=== PATIENT | male | born 1945 | race Caucasian/White ===

== ENCOUNTER → 2016-07-10 | Outpatient (CLI) | payer MEDICARE, OTHER | END | disposition home or self-care (01) | LOC: GMAJ 08:30 | PROVIDERS: ATTEND Family Medicine | DX: N18.3 Chronic kidney disease, stage 3 (moderate) (principal) ==

== ENCOUNTER → 2016-07-17 | Outpatient (CLI) | payer MEDICARE, OTHER ==
--- NOTE | 2016-07-17 11:49 | MRI ---
EXAM DESCRIPTION: Lumbar Spine w/o Contrast CLINICAL HISTORY: OTHER SPONDYLOSIS WITH MYELOPATHY COMPARISON: X-ray July 12, 2016 TECHNIQUE: Multiplanar, multisequence MRI of the lumbar spine was performed without contrast. FINDINGS: GENERAL Lumbar vertebral bodies show normal height without compression deformity. There is trace anterolisthesis of L4 on L5. No marrow replacing process is seen. Conus medullaris terminates at T12-L1 and is unremarkable. The visualized intra-abdominal and retroperitoneal structures are unremarkable. Several fluid signal less than 10 mm cortical cysts are seen on the upper pole right and lower pole left kidneys. L1-2 Disc desiccation and mild loss of disc space height is seen. No significant spinal canal stenosis or foraminal encroachment is seen. Heterogeneous signal is seen in the bone marrow around the anterior endplates of the disc space. Anterior disc bulging and marginal endplate osteophytes are seen. L2-3 No significant findings. L3-4 No significant findings. L4-5 Disc desiccation and mild loss of disc space height is seen. Moderate bilateral facet hypertrophic and degenerative changes with moderate ligamentum flavum thickening is seen. There is multifactorial moderate spinal canal stenosis. The thecal sac measures 8 mm AP by 12 mm transverse. There is at least mild right greater than left foraminal encroachment. Mild bilateral lateral recess encroachment is seen. There is a 6 mm posterior inferior left and 7 mm right facet joint cyst. L5-S1 Mild disc desiccation without loss of disc space height. Mild facet hypertrophy is seen. No significant spinal canal stenosis or foraminal encroachment. IMPRESSION: Mild disc disease and moderate facet arthropathy contributes to at least mild spinal canal stenosis with lateral recess and bilateral foraminal encroachment at L4-5. Mild to moderate disc disease at L1-2 is seen with Modic type I and II degenerative endplate signal changes anteriorly. Electronically signed by: Michael Mijares MD 07/17/2016 11:48 AM CDT
== END ==
LOC: MRI 08:56
PROVIDERS: ATTEND Family Medicine
DX: M47.16 Other spondylosis with myelopathy, lumbar region (principal)

== ENCOUNTER → 2016-10-31 | Outpatient (CLI) | payer MEDICARE, OTHER | END | disposition home or self-care (01) | LOC: GMAJ 11:00 | PROVIDERS: ATTEND Family Medicine | DX: I50.22 Chronic systolic (congestive) heart failure (principal) ==

== ENCOUNTER → 2017-02-26 | Outpatient (CLI) | payer MEDICARE, OTHER | END | disposition home or self-care (01) | LOC: GMAJ 10:48 | PROVIDERS: ATTEND Family Medicine | DX: Z12.5 Encounter for screening for malignant neoplasm of prostate (principal); I50.22 Chronic systolic (congestive) heart failure | CPT/HCPCS: 83880; G0103 ==

== ENCOUNTER → 2017-03-19 | Outpatient (CLI) | payer MEDICARE, OTHER | END | disposition home or self-care (01) | LOC: GMAJ 13:55 | PROVIDERS: ATTEND Family Medicine | DX: R06.02 Shortness of breath (principal) ==

== ENCOUNTER → 2017-07-16 | Outpatient (CLI) | payer MEDICARE, OTHER | LOC: GMAJ 11:26 | PROVIDERS: ATTEND Family Medicine | DX: I50.22 Chronic systolic (congestive) heart failure (principal) ==

== ENCOUNTER → 2017-11-12 | Outpatient (CLI) | payer MEDICARE, OTHER | LOC: GMAJ 11:13 | PROVIDERS: ATTEND Family Medicine | DX: I50.22 Chronic systolic (congestive) heart failure (principal) ==

== ENCOUNTER → 2018-02-11 | Outpatient (CLI) | payer MEDICARE, OTHER | LOC: GMAJ 10:49 | PROVIDERS: ATTEND Family Medicine | DX: R06.02 Shortness of breath (principal) ==

== ENCOUNTER → 2018-03-07 | Outpatient (CLI) | payer MEDICARE, OTHER | LOC: GMAJ 10:36 | PROVIDERS: ATTEND Family Medicine | DX: I50.22 Chronic systolic (congestive) heart failure (principal) ==

== ENCOUNTER → 2018-05-13 | Outpatient (CLI) | payer MEDICARE, OTHER | LOC: GMAJ 10:22 | PROVIDERS: ATTEND Family Medicine | DX: R06.02 Shortness of breath (principal); Z12.5 Encounter for screening for malignant neoplasm of prostate | CPT/HCPCS: 83880; G0103 ==

== ENCOUNTER 2018-07-12 11:17 | Inpatient (IN) | payer MEDICARE, OTHER ==
--- NOTE | 2018-07-12 11:22 | HP ---
SUPERVISING PHYSICIAN: Rogerio Hamilton M.D. CHIEF COMPLAINT: Increasing exertional dyspnea. HISTORY OF PRESENT ILLNESS: Mr. Sainz is a 72 year-old male patient with a history of congestive heart failure first diagnosed in 2013 secondary to nonischemic cardiomyopathy with ejection fraction noted to be 45% in 2018. He also has a significant history of peripheral vascular disease and chronic renal failure with his creatinine level normally running around 2.5. He presented to Dr. Hamilton' office complaining of shortness of breath that had been worsening over the last 3 weeks. He noted that he was feeling dizzy, light-headed and significantly fatigued. Lab work in the clinic showed that he was significantly anemic with an initial hemoglobin of 7.1, hematocrit 22.3, white count was normal. Differential was normal. RBC indices were showing to be all within normal limits. He denied any obvious episodes of bleeding, nausea, vomiting or abdominal pains or any bright red blood per rectum. BNP showed to be at the patient's normal baseline levels. The patient's baseline level of BNP is normally around 300 to 400. BNP today was slightly elevated above that at 675. Chemistry showed that his creatinine was slightly bumped to 2.6 with BUN of 48, otherwise all other chemistries were within normal limits. Given the patient's history of congestive heart failure with a systolic etiology and anemia resulting in severe symptoms of fatigue, dizziness and light-headedness and shortness of breath, he is having obviously some exacerbation from low output of his CHF. Dr. Hamilton requested the patient be directly admitted for exacerbation of CHF secondary to anemia for further workup and transfusion of blood, and close monitoring. The patient was admitted in stable condition. PAST MEDICAL HISTORY: 1. Systolic congestive heart failure with last echocardiogram in 2018 showing to be with an ejection fraction of 45% and etiology is nonischemic cardiomyopathy. 2. Hypertension. 3. Hyperlipidemia. 4. Peripheral vascular disease with claudication. 5. Chronic renal failure with creatinine level normally around 2.5. 6. History of upper GI bleed secondary to alcoholic gastritis. PAST SURGICAL HISTORY: 1. Tonsillectomy in 1952. 2. Last colonoscopy was in 2011. 3. Right LE stent placement. 4. Cardiac catheterization in 2013 indicating nonischemic cardiomyopathy. HOME MEDICATIONS: 1. Entresto 97-103 mg 1 tablet b.i.d. 2. Ranexa 500 mg b.i.d. 3. Potassium chloride 20 mEq daily. 4. Lasix 40 mg daily. 5. Calcitrol 0.25 mg daily. 6. Lipitor 40 mg daily. 7. Aspirin 81 mg daily. ALLERGIES: PENICILLINS. FAMILY HISTORY: Father at age 54 secondary to myocardial infarction. Mother at age 74 with hepatitis C. SOCIAL HISTORY: The patient is retired from the [employer]. He is a previous heavy drinker but quit multiple years previously. He was also a heavy smoker for well over 30 years smoking 1 pack per day, but quit in 2012. He lives in [place], [place] and is single. Denies any illicit drug use. REVIEW OF SYSTEMS: CONSTITUTIONAL: Positive for fatigue. Negative for chills, fevers, weight loss. HEENT: Negative for any ear aches, sore throat, nasal congestion, vision changes. RESPIRATORY: Negative for any cough, wheezing. Positive for increasing dyspnea with exertion. CARDIOVASCULAR: Negative for any chest pains, orthopnea, palpitations or peripheral edema. Positive for exertional dyspnea. GASTROINTESTINAL: Negative for any nausea, vomiting, diarrhea, constipation or abdominal pains. GENITOURINARY: Denies any dysuria, hematuria or polyuria. EXTREMITIES: Negative for any edema. NEUROLOGIC: Negative for ataxia, seizures, syncopal episodes, headaches or other neurological deficits. PHYSICAL EXAMINATION: VITAL SIGNS: Temperature 97.4, pulse 73, blood pressure 154/73, respirations 18, satting 100% on room air at rest. Admission weight 70.4 kg. GENERAL: The patient is pale but appears to be well hydrated and well nourished. He appears to be in no acute distress. He is very pleasant and alert. HEENT: Tympanic membranes are clear bilaterally. Oropharynx was pink and moist without any lesions. NECK: Supple, non-tender with full range of motion. CHEST: Lungs were clear to auscultation bilaterally without any rhonchi, wheezing or rales. CARDIOVASCULAR: Regular rate and rhythm without appreciable murmurs, gallops, or rubs. ABDOMEN: Soft, non-tender. Positive bowel sounds. EXTREMITIES: Without any clubbing, cyanosis or edema. NEUROLOGIC: He is alert and oriented times three. LABORATORY STUDIES: CBC showed white count 10,000, hemoglobin 7.1, hematocrit 22.3 with RBCs low at 2.52. Platelets normal at 408,000. RBC indices were showing to be within normal limits. Differential was without a left shift. Chemistries showed glucose 164, BUN 48, creatinine 2.6. Sodium 142, potassium 4.8, chloride 109, CO2 of 22, calcium 9.5. Liver functions were all within normal limits. Bilirubin normal. BNP 675. Coagulation studies showed normal PT and PTT. Magnesium 2.2. Urinalysis just showed trace of lysed blood. RADIOLOGY: Chest x-ray on admission showed no acute cardiopulmonary process. EKG 12-lead was pending. ASSESSMENT: 1. Symptomatic anemia probably due to chronic renal failure with no obvious source of acute loss. 2. Systolic heart failure chronic on acute with exacerbation due to low output from #1 with etiology being ischemic cardiomyopathy with last echocardiogram in 2018 showing an ejection fraction of 45% and an elevated BNP on admission. 3. Hypertension with a systolic heart failure with an ejection fraction of 45%. 4. Severe peripheral vascular disease with claudication. 5. Acute on chronic renal failure with prerenal azotemia secondary to severe anemia. PLAN: The patient is a direct admission for symptomatic anemia and exacerbation of congestive heart failure. The patient will be cross matched and typed and screened for transfusion of 2 units of packed red blood cells. Will give 40 of Lasix after the second unit. He will be on DVT prophylaxis as per protocol. Will have him on Protonix for GI prophylaxis. Will review his medications and resume those as appropriate. Will anticipate his length of stay to be at least 2 to 3 days. Until he can transition to outpatient management will continue to monitor and treat as needed. #[id number] MTDD
[2018-07-12] MEDS ORDERED: ACETAMINOPHEN 325 MG TAB PO PRN (12:06)
[2018-07-12] MEDS ORDERED: SODIUM CHLORIDE 0.9% (FLUSH) 10 ML SYG IV PRN ×2 (12:06→14:22)
[2018-07-12] MEDS ORDERED: NITROGLYCERIN 0.4 MG 25 EA TAB SL PRN (12:06)
[2018-07-12] MEDS ORDERED: IV SET AND CAP CHANGE INJ INJ SCH ×2 (12:30→14:30)
--- NOTE | 2018-07-12 13:47 | RAD ---
EXAM DESCRIPTION: Chest,2 Views CLINICAL HISTORY: 72 years Male, CHF COMPARISON: None available. TECHNIQUE: PA and lateral radiographs of the chest were obtained. FINDINGS: Trachea is midline.The cardiomediastinal silhouette is normal in size. The pulmonary vasculature is within normal limits.The lungs are clear with no acute consolidation.No evidence of pleural effusions.No evidence of pneumothorax. IMPRESSION: No acute cardiopulmonary process. Electronically signed by: Courtney Moran MD 07/12/2018 1:44 PM CDT
[2018-07-12] MEDS ORDERED: ACETAMINOPHEN 500 MG TAB PO PRN (14:22)
[2018-07-12] MEDS ORDERED: MORPHINE SULFATE INJ 10 MG/ML VIAL IM PRN (14:22)
[2018-07-12] MEDS ORDERED: ONDANSETRON INJ 4 MG/2 ML VIAL IV PRN (14:22)
[2018-07-12] MEDS ORDERED: PROMETHAZINE HCL INJ 12.5 MG in SODIUM CHLORIDE 0.9% 50ML 50 ML IVPB PRN (14:22)
[2018-07-12] MEDS ORDERED: MORPHINE SULFATE INJ 10 MG/ML VIAL IV PRN (14:22)
[2018-07-12] MEDS ORDERED: DEX 5% W/NACL 0.45% 1000ML 1,000 ML IVS PRN (14:22)
[2018-07-12] MEDS ORDERED: NALOXONE HCL INJ 0.4 MG/ML VIAL IV PRN (14:22)
[2018-07-12] MEDS ORDERED: PROMETHAZINE HCL INJ 25 MG in SODIUM CHLORIDE 0.9% 50ML 50 ML IVPB PRN (14:22)
[2018-07-12] MEDS ORDERED: MORPHINE PCA 1 MG/ML 100 ML BAG IVPB SCH (14:30)
[2018-07-12] MEDS ORDERED: diphenhydrAMINE HCL 50 MG/ML VIAL IV ONE (15:30)
[2018-07-12] MEDS ORDERED: FUROSEMIDE INJ 40 MG/4 ML VIAL IV ONE (15:30)
[2018-07-12] MEDS ORDERED: ACETAMINOPHEN 325 MG TAB PO ONE (15:30)
[2018-07-12] MEDS ORDERED: SODIUM CHLORIDE 0.9% 500ML 500 ML IVS SCH (15:30)
[2018-07-12] MEDS ORDERED: ceFAZolin SODIUM 2 GM in SODIUM CHL 0.9% 50ML MIN-BAG+ 50 ML IVPB SCH (16:00)
[2018-07-12] MEDS ORDERED: VANCOMYCIN HCL INJ 1,000 MG in SODIUM CHLORIDE 0.9% 250ML 250 ML IVPB SCH (18:00)
[2018-07-12] MEDS: ENOXAPARIN SODIUM 30 MG/0.3 ML SYG SUBCU SCH (20:29)
[2018-07-12] MEDS ORDERED: DOCUSATE CALCIUM 240 MG CAP PO SCH (21:00)
[2018-07-12] MEDS ORDERED: ENOXAPARIN SODIUM 30 MG/0.3 ML SYG SUBCU SCH (23:00)
[2018-07-13] MEDS ORDERED: MAGNESIUM OXIDE 400 MG TAB PO SCH (09:00)
[2018-07-13] MEDS: RANOLAZINE 500 MG TAB PO SCH ×2 (11:42→20:53)
[2018-07-13] MEDS: CALCITRIOL 0.25 MCG CAP PO SCH (11:42)
[2018-07-13] MEDS: ASPIRIN (ENTERIC COATED) 81 MG TAB PO SCH (11:42)
[2018-07-13] MEDS: ENTRESTO PO SCH ×2 (12:19→20:55)
--- NOTE | 2018-07-13 16:48 | PN ---
DATE: 07/13/18 SUPERVISING PHYSICIAN: Rogerio Hamilton M.D. SUBJECTIVE: The patient notes that he is feeling much better this morning. He is not as short of breath and not dizzy when he walks from the bathroom to the bed. He has no other complaints. OBJECTIVE: VITAL SIGNS: Temperature 98.2, pulse 77, blood pressure 124/62, respirations 16, satting 98% on room air. GENERAL: The patient is resting comfortably without any signs of distress. He is alert. CHEST: Clear to auscultation. HEART: Regular rate and rhythm. ABDOMEN: Soft, non-tender. Positive bowel sounds. EXTREMITIES: Without any clubbing, cyanosis or edema. NEUROLOGIC: He is alert and oriented times three. LABORATORY: H&H post transfusion of 2 units of packed red blood cells show hemoglobin 9.6, hematocrit 29.5. Chemistries show normal electrolytes, BUN 49, creatinine 2.33. ASSESSMENT: 1. Symptomatic anemia probably due to chronic renal insufficiency showing good response with transfusion of 2 units of packed red blood cells. 2. Systolic heart failure, chronic on acute with exacerbation due to low output from #1, etiology being ischemic cardiomyopathy with last echocardiogram showing an ejection fraction of 45% in 2018 showing improvement with transfusion. 3. Hypertension with a systolic heart failure with an ejection fraction of 45% as noted in #2. 4. Severe peripheral vascular disease with claudication. 5. Acute on chronic renal failure with prerenal azotemia secondary to severe anemia showing some slight improvement with infusion of blood. PLAN: Will start him back on his Entresto today but half the dose and encourage him to ambulate to check his oxygenation level throughout the day. If he has any stools will do occult bloods. At this point there are no signs of acute bleed. Will monitor him clinically every night. 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 Should he show good response to the Entresto dosing and stable H&H in the morning, will discharge home. Until he can transition to outpatient management will continue to monitor and treat as needed. #[id number] MTDD
[2018-07-13] MEDS: ENOXAPARIN SODIUM 30 MG/0.3 ML SYG SUBCU SCH (20:55)
[2018-07-13] MEDS ORDERED: ATORVASTATIN 20 MG TAB PO SCH (21:00)
[2018-07-14 03:09] VITALS: O2SAT 98
[2018-07-14 06:32] VITALS: BP 116/71; TEMP 97.8
[2018-07-14] MEDS: RANOLAZINE 500 MG TAB PO SCH (08:23)
[2018-07-14] MEDS: CALCITRIOL 0.25 MCG CAP PO SCH (08:23)
[2018-07-14] MEDS: ASPIRIN (ENTERIC COATED) 81 MG TAB PO SCH (08:23)
[2018-07-14] MEDS: ENTRESTO PO SCH (08:24)
[2018-07-14] MEDS ORDERED: SODIUM CHLORIDE 0.9% (FLUSH) 10 ML SYG IV SCH (09:00)
[2018-07-15] MEDS ORDERED: BISACODYL SUPPOSITORY 10 MG PR ONE (21:00)
[2018-07-15] MEDS ORDERED: MAGNESIUM HYDROXIDE 30 ML UD PO ONE (21:00)
--- NOTE | 2018-07-22 11:20 | DS ---
SUPERVISING PHYSICIAN: Rogerio Hamilton MD ADMISSION DIAGNOSIS: 1. Symptomatic anemia probably due to chronic renal failure with no obvious source of acute loss. 2. Systolic heart failure chronic on acute with exacerbation due to low output from #1 with etiology being ischemic cardiomyopathy with last echocardiogram in 2018 showing an ejection fraction of 45% and an elevated BNP on admission. 3. Hypertension with a systolic heart failure with an ejection fraction of 45%. 4. Severe peripheral vascular disease with claudication. 5. Acute on chronic renal failure with prerenal azotemia secondary to severe anemia. DISCHARGE DIAGNOSIS: 1. Symptomatic anemia probably due to chronic renal insufficiency showing good response with transfusion of 2 units of packed red blood cells. 2. Systolic heart failure, chronic on acute with exacerbation due to low output from #1, etiology being ischemic cardiomyopathy with last echocardiogram showing an ejection fraction of 45% in 2018 showing improvement with transfusion. 3. Hypertension with a systolic heart failure with an ejection fraction of 45% as noted in #2. 4. Severe peripheral vascular disease with claudication. 5. Acute on chronic renal failure with prerenal azotemia secondary to severe anemia showing some slight improvement with infusion of blood. REASON FOR HOSPITALIZATION: Mr. Sainz is a 72 year-old male patient with a history of congestive heart failure first diagnosed in 2014 secondary to nonischemic cardiomyopathy with ejection fraction noted to be 45% in 2018. He also has a significant history of peripheral vascular disease and chronic renal failure with his creatinine level normally running around 2.5. He presented to Dr. Hamilton' office complaining of shortness of breath that had been worsening over the last 3 weeks. He noted that he was feeling dizzy, light-headed and significantly fatigued. Lab work in the clinic showed that he was significantly anemic with an initial hemoglobin of 7.1, hematocrit 22.3, white count was normal. Differential was normal. RBC indices were showing to be all within normal limits. He denied any obvious episodes of bleeding, nausea, vomiting or abdominal pains or any bright red blood per rectum. BNP showed to be at the patient's normal baseline levels. The patient's baseline level of BNP is normally around 300 to 400. BNP today was slightly elevated above that at 675. Chemistry showed that his creatinine was slightly bumped to 2.6 with BUN of 48, otherwise all other chemistries were within normal limits. Given the patient's history of congestive heart failure with a systolic etiology and anemia resulting in severe symptoms of fatigue, dizziness and light-headedness and shortness of breath, he is having obviously some exacerbation from low output of his CHF. Dr. Hamilton requested the patient be directly admitted for exacerbation of CHF secondary to anemia for further workup and transfusion of blood, and close monitoring. The patient was admitted in stable condition. LABORATORY: Post transfusion hemoglobin and hematocrit were 9.6 and 29.5. Prior to discharge, hemoglobin was 9.8 and hematocrit 30.1. Coagulation studies showed normal PT, PTT. Chemistries showed normal electrolytes both on admission and at discharge. Creatinine was 2.33 on admission and at discharge was 1.92. Magnesium 2.2. He had one stool occult blood was that was negative. RADIOLOGY: Chest x-ray on admission per radiologic interpretation of two-view chest showed no acute cardiopulmonary process. He also had an EKG that showed sinus rhythm with some PACs. No acute changes compared to previous on 11/28/13. HOSPITAL COURSE: Mr. Sainz was admitted and transfused 2 units of packed red blood cells. He had no complications post transfusion. He was given Lasix after transfusion. The patient's Lasix was held as well as we halved his dose of his Entresto and he showed good clinical response with vital signs being stable. He was found to be stable and improving clinically and felt well enough to continue with outpatient management the day after transfusion and prior to discharge. Discharge vital signs showed temperature 97.8, pulse 68, blood pressure 116/71, saturation 98% on room air. PLAN: Mr. Sainz was discharged on 07/14/18 with instructions to followup with Dr. Hamilton in the clinic the following week. He was to take medications as instructed and to told to return to the hospital or call Dr. Hamilton if he had any worsening symptoms or other concerning symptoms. Diet at discharge was regular diet as tolerated. Activity to increase as tolerated. MEDICATIONS AT DISCHARGE: 1. Entresto 49-51 mg 1 tablet twice daily, #60. All other medications prior to hospitalization were continued except for the dosage change on Entresto. DISPOSITION: The patient was discharged to care of family. CONDITION AT DISCHARGE: Stable and improving. #[id number] [facility]
== END 2018-07-14 10:10 | disposition home or self-care (01) | DRG 291 ==
LOC: MS 11:17
PROVIDERS: ADMIT Nurse Practitioner Family; ATTEND Nurse Practitioner Family
PROC: 30233N1 Transfusion of Nonautologous Red Blood Cells into Peripheral Vein, Percutaneous Approach (ICD-10-PCS; principal; 2018-07-12)
DX: I13.0 Hypertensive heart and chronic kidney disease with heart failure and stage 1 through stage 4 chronic kidney disease, or unspecified chronic kidney disease (principal); I50.23 Acute on chronic systolic (congestive) heart failure; N17.9 Acute kidney failure, unspecified; D63.1 Anemia in chronic kidney disease; N18.9 Chronic kidney disease, unspecified; I73.9 Peripheral vascular disease, unspecified; I42.9 Cardiomyopathy, unspecified; E78.5 Hyperlipidemia, unspecified; Z95.820 Peripheral vascular angioplasty status with implants and grafts; Z79.82 Long term (current) use of aspirin; Z88.0 Allergy status to penicillin; Z79.899 Other long term (current) drug therapy; Z87.891 Personal history of nicotine dependence

== ENCOUNTER → 2018-07-15 | Outpatient (CLI) | payer MEDICARE, OTHER | LOC: GMAJ 11:19 | PROVIDERS: ATTEND Family Medicine | DX: D64.9 Anemia, unspecified (principal) ==

== ENCOUNTER 2018-10-09 05:20 | Day surgery (SDC) | payer MEDICARE, OTHER ==
[2018-10-09 15:52] VITALS: O2SAT 96
[2018-10-09 15:53] VITALS: BP 123/76; TEMP 98.1
== END 2018-10-09 14:35 | disposition home or self-care (01) ==
LOC: AMB 05:20
PROVIDERS: ATTEND Internal Medicine Gastroenterology
DX: D50.9 Iron deficiency anemia, unspecified (principal); K21.0 Gastro-esophageal reflux disease with esophagitis; K44.9 Diaphragmatic hernia without obstruction or gangrene; K31.89 Other diseases of stomach and duodenum; K57.30 Diverticulosis of large intestine without perforation or abscess without bleeding; K64.8 Other hemorrhoids
CPT/HCPCS: 00813; 43239; 45378; 88305; 88342; J3490; J7120

== ENCOUNTER 2019-07-05 | Emergency (ER) | payer MEDICARE, OTHER | END 2019-07-05 17:20 | disposition home or self-care (01) | CPT/HCPCS: 36415; 71046; 80053; 81001; 82550; 82553; 83735; 83880; 84443; 84484; 85025; 85610; 85730; 87502; 93005; 94640; J1940; J7620 ==

== ENCOUNTER → 2019-08-20 | Outpatient (CLI) | payer MEDICARE, OTHER | LOC: ECHO 13:00 | PROVIDERS: ATTEND Family Medicine | DX: I50.23 Acute on chronic systolic (congestive) heart failure (principal); I51.89 Other ill-defined heart diseases; I51.7 Cardiomegaly; I36.1 Nonrheumatic tricuspid (valve) insufficiency; I27.20 Pulmonary hypertension, unspecified ==

== ENCOUNTER → 2019-09-01 | Outpatient (CLI) | payer MEDICARE, OTHER | LOC: GMAJ 11:30 | PROVIDERS: ATTEND Family Medicine | DX: D50.0 Iron deficiency anemia secondary to blood loss (chronic) (principal); I50.23 Acute on chronic systolic (congestive) heart failure ==

== ENCOUNTER 2020-06-14 13:45 | Emergency (ER) | payer MEDICARE, OTHER ==
[2020-06-14 14:00] VITALS: TEMP 96.8
--- NOTE | 2020-06-14 14:25 | ED.PDOC ---
History of Present Illness - General Chief Complaint: Respiratory Problem Stated Complaint: SOB, peripheral edema Time Seen by Provider: 06/14/20 14:11 - History of Present Illness Initial Comments: PRESENTS C/O WORSENING LE EDEMA, GENERALIZED WEAKNESS. PMHX OF AFIB AND HEART FAILURE. PATIENT STATES BESIDES THE BUILD UP OF SWELLING IN HIS LOWER EXTREMITIS BILAT, HE HAS FELT MORE WEAK THAN USUAL. STATES HE FEELS THE SAME WHEN HE HAD ANEMIA OVER A YEAR AGO, HE RELATES THAT HE HAS A HISTORY OF PERIPHERAL VASCULAR DISEASE, HE HAD BIPASS SURGERY IN HIS RIGHT LEG, HE DENIES HISTORY OF ASCAD. HE STATES HIS CORONARY ARTERIES WHERE CLEAR ON PRIOR HEART CATH. HE HAS A HISTORY SMOKING AND HYPERTENSION Allergies/Adverse Reactions: Allergies Penicillins Allergy (Mild, Verified 06/14/20 14:00) itching Home Medications: Ambulatory Orders Aspirin [Jim Aspirin EC Low Dose] 81 mg PO DAILY 04/18/13 Atorvastatin Calcium [Lipitor] 40 mg PO DAILY 11/29/13 Furosemide Tab [Lasix Tab] 40 mg PO DAILY 11/29/13 Potassium Chloride [Potassium Chloride ER] 20 meq PO DAILY 11/29/13 Calcitriol [Rocaltrol] 0.25 mcg PO DAILY 07/12/18 Ranolazine [Ranexa] 500 mg PO BID 07/12/18 Sacubitril-Valsartan [Entresto 49-51 mg] 1 tablet PO DAILY 10/09/18 Furosemide [Lasix] 80 mg PO DAILY #5 tab 07/05/19 Metolazone 5 mg PO DAILY #5 tab 07/05/19 Review of Systems - Review of Systems Constitutional: States: no symptoms reported EENTM: States: no symptoms reported Respiratory: States: see HPI Cardiology: States: see HPI Gastrointestinal/Abdominal: States: no symptoms reported Genitourinary: States: no symptoms reported Musculoskeletal: States: no symptoms reported Skin: States: no symptoms reported Neurological: States: no symptoms reported Endocrine: States: no symptoms reported Hematologic/Lymphatic: States: no symptoms reported Past Medical History (General) - Patient Medical History Hx Seizures: No Hx Stroke: No Hx Dementia: No Hx Asthma: Yes Hx of COPD: No Hx Cardiac Disorders: Yes Hx Congestive Heart Failure: Yes Hx Pacemaker: No Hx Hypertension: Yes Hx Thyroid Disease: No Hx Diabetes: No Hx Gastroesophageal Reflux: No Hx Renal Disease: No Hx Cancer: No Hx of HIV: No Hx Hepatitis C: No Hx MRSA: No - Vaccination History Hx Tetanus, Diphtheria Vaccination: Yes Hx Influenza Vaccination: Yes Hx Pneumococcal Vaccination: Yes - Social History Hx Tobacco Use: Yes Hx Chewing Tobacco Use: No Hx Alcohol Use: No Hx Substance Use: No Hx Substance Use Treatment: No Hx Depression: No Hx Physical Abuse: No Hx Emotional Abuse: No Hx Suspected Abuse: No - Activities of Daily Living Hospice Agency (if applicable):: None - Female History Patient is a Female of Child Bearing Age (10 -59 yrs old): No Patient : No Family Medical History - Family History Maternal Family History: Unknown Living Status: Unknown Father Living Status: Hx Family Asthma: No Hx Family Congestive Heart Failure: No Hx Family Hypertension: No Hx Family Stroke: No Hx Cardiac Disease: Yes Hx Family Diabetes: No Hx Family Cancer: No Physical Exam - Physical Exam General Appearance: Alert, Comfortable, Well Developed, Well Groomed, Well Hydrated, Well Nourished Ears, Nose, Throat: hearing grossly normal, normal ENT inspection, normal pharynx Neck: non-tender, full range of motion, supple Respiratory: chest non-tender, lungs clear, normal breath sounds, no respiratory distress Cardiovascular/Chest: normal peripheral pulses, regular rate, rhythm, no edema, no gallop, no JVD Gastrointestinal/Abdominal: normal bowel sounds, non tender, soft, no organomegaly, no pulsatile mass, abnormal bowel sounds Back Exam: normal inspection, no CVA tenderness, no vertebral tenderness Extremity: normal range of motion, non-tender, normal inspection, no pedal edema, no calf tenderness Neurologic: 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 TRANSFER TO JOINER. PATIENT STABLE FOR TRANSFER. Departure - Departure Clinical Impression: Bradycardia Congestive heart failure Qualifiers: Heart failure type: unspecified Heart failure chronicity: acute on chronic Qual ified Code(s): I50.9 - Heart failure, unspecified Time of Disposition: 13:00 Disposition: Transfer to Hospital Departure Forms: ED Discharge - Pt. Copy, Patient Portal Self Enrollment Referrals: Rogerio Hamilton MD [Primary Care Provider] - 1-2 Weeks Home Medications: Ambulatory Orders Aspirin [Jim Aspirin EC Low Dose] 81 mg PO DAILY 04/18/13 Atorvastatin Calcium [Lipitor] 40 mg PO DAILY 11/29/13 Furosemide Tab [Lasix Tab] 40 mg PO DAILY 11/29/13 Potassium Chloride [Potassium Chloride ER] 20 meq PO DAILY 11/29/13 Calcitriol [Rocaltrol] 0.25 mcg PO DAILY 07/12/18 Ranolazine [Ranexa] 500 mg PO BID 07/12/18 Sacubitril-Valsartan [Entresto 49-51 mg] 1 tablet PO DAILY 10/09/18 Furosemide [Lasix] 80 mg PO DAILY #5 tab 07/05/19 Metolazone 5 mg PO DAILY #5 tab 07/05/19
--- NOTE | 2020-06-14 15:20 | RAD ---
EXAM DESCRIPTION: Chest,1 View CLINICAL HISTORY: 74 years Male, CHF COMPARISON: July 05, 2019 Findings: One view(s)/radiograph(s) Cardiomegaly. Slight pulmonary vascular congestion. No pneumothorax. No pleural effusion. No focal consolidation. Remote left rib deformities. No acute osseous abnormality. IMPRESSION: Cardiomegaly with slight pulmonary vascular congestion. Electronically signed by: Toro Hsu MD 06/14/2020 3:18 PM HOUSING MANAGEMENT REPRESENTATIVE
[2020-06-14 16:42] VITALS: BP 129/74; O2SAT 96
== END 2020-06-14 16:35 | disposition short-term general hospital (02) ==
LOC: ER 13:45
DX: I50.9 Heart failure, unspecified (principal); R00.1 Bradycardia, unspecified; I48.91 Unspecified atrial fibrillation; I10 Essential (primary) hypertension; J45.909 Unspecified asthma, uncomplicated; Z87.891 Personal history of nicotine dependence; Z79.899 Other long term (current) drug therapy; Z79.82 Long term (current) use of aspirin; Z88.0 Allergy status to penicillin; Z86.79 Personal history of other diseases of the circulatory system; Z98.890 Other specified postprocedural states; Z86.2 Personal history of diseases of the blood and blood-forming organs and certain disorders involving the immune mechanism